=== PATIENT | male | born 1975 | race Caucasian/White ===

== ENCOUNTER 2023-06-06 08:28 | Outpatient (REF) | payer MEDICAID, SELFPAY ==
[2023-06-06 14:12] LABS: MANUAL DIFF FLAG NO
[2023-06-06 14:16] LABS: Basophils Absolute Auto 0.1 X10*3/uL (0.0-0.2); Basophils Percent Auto 0.9 % (0-2); Eosinophils Absolute Auto 0.2 X10*3/uL (0.0-0.4); Eosinophils Percent Auto 1.6 % (0-4); Hematocrit 42.5 % (42.0-52.0); Hemoglobin 13.6 g/dl (14.0-18.0); Imm Gran Abs Auto 0.03 X10*3/uL (0.00-0.03); Imm Gran Pct Auto 0.3 % (0.0-0.4); Lymphocytes Absolute Auto 2.8 X10*3/uL (1.2-4.9); Lymphocytes Percent Auto 28.5 % (20-40); Mean Corpuscular Hemoglobin 32.4 pg (27.0-33.0); Mean Corpuscular Volume 101.2 fL (80.0-98.0); Mean Platelet Volume 12.5 fL (9.4-12.4); Monocytes Absolute Auto 0.7 X10*3/uL (0.1-1.2); Monocytes Percent Auto 7.6 % (2-11); Neutrophils Absolute Auto 5.9 x10*3/uL (2.0-8.3); Neutrophils Percent Auto 61.1 % (45-73); Platelet Count 265 X10*3/uL (160-400); Red Cell Distribution Width 12.9 % (11.0-16.0); White Blood Count 9.6 X10*3/uL (4.8-10.8)
[2023-06-06 14:25] LABS: Estimated Average Glucose 105 mg/dL; Hemoglobin A1c % 5.3 % (<6.0)
[2023-06-06 14:39] LABS: Alanine Aminotransferase 12 U/L (0-40); Albumin Level 4.1 g/dL (3.5-5.0); Alkaline Phosphatase 58 U/L (39-117); Anion Gap 18 (12-20); Aspartate Amino Transferase 13 U/L (5-37); Bilirubin Total 1.1 mg/dL (0.0-1.0); Blood Urea Nitrogen 43 mg/dL (9-16); Calcium 9.6 mg/dL (8.4-10.2); Carbon Dioxide 22 mmol/L (22-29); Chloride 104 mmol/L (96-108); Cholesterol 134 mg/dL (<200); Estimated Glomerular Filt Rate 53; Glucose Fasting 89 mg/dL (60-99); HDL Cholesterol 39 mg/dL (>40); LDL Cholesterol Calculated 54 mg/dL (<100); Potassium 4.6 mmol/L (3.3-5.1); Sodium 139 mmol/L (135-145); Total Protein 8.3 g/dL (6.5-8.0); Triglycerides 208 mg/dL (<150)
[2023-06-06 14:51] LABS: Creatinine Urine 189.73 mg/dL; Microalbum/Creatinine Ratio Ur 12.1 ug/mg cr (<30)
[2023-06-06 14:56] LABS: TSH reflex Free T4 0.98 uIU/mL (0.32-4.0)
[2023-06-07 05:34] LABS: ~HepC Num1 0.15 S/CO (0.00-0.79); ~Hepatitis C Antibody Nonreactive (Nonreactive)
[2023-06-09 15:34] LABS: HIV RNA PCR Qn Copies Not Detected Copies/mL; HIV RNA PCR Qn Log Copies Not Detected Log cps/mL
== END 2023-06-06 08:29 | disposition home or self-care (01) ==
LOC: HO.CHCLDS 08:28
PROVIDERS: Visit Provider Internal Medicine
DX: Z11.4 Encounter for screening for human immunodeficiency virus [HIV] (principal); E11.69 Type 2 diabetes mellitus with other specified complication; E78.5 Hyperlipidemia, unspecified
CPT/HCPCS: 36415; 80053; 80061; 82043; 82570; 83036; 84443; 85025; 86803; 87536; 87900

== ENCOUNTER 2023-06-13 10:16 | Outpatient (REF) | payer MEDICAID, SELFPAY ==
[2023-06-13 15:03] LABS: Iron 72 mcg/dL (45-160); Percent Iron Saturation 25 % (15-50); Total Iron Binding Capacity 285 mcg/dL (228-428); Unsaturated Iron Binding 213 ug/dL
[2023-06-13 15:29] LABS: Vitamin B12 275 pg/mL (200-900)
== END 2023-06-13 10:17 | disposition home or self-care (01) ==
LOC: HO.CHCLDS 10:16
PROVIDERS: Visit Provider Internal Medicine
DX: E11.65 Type 2 diabetes mellitus with hyperglycemia (principal); Z79.4 Long term (current) use of insulin
CPT/HCPCS: 36415; 82607; 82746; 83540

== ENCOUNTER 2024-03-09 10:20 | Outpatient (REF) | payer MEDICAID, SELFPAY ==
[2024-03-09 14:56] LABS: Alanine Aminotransferase 17 U/L (0-40); Alkaline Phosphatase 53 U/L (39-117); Anion Gap 15 (12-20); Aspartate Amino Transferase 21 U/L (5-37); Bilirubin Total 1.9 mg/dL (0.0-1.0); Blood Urea Nitrogen 29 mg/dL (9-16); Calcium 9.6 mg/dL (8.4-10.2); Carbon Dioxide 25 mmol/L (22-29); Chloride 104 mmol/L (96-108); Estimated Glomerular Filt Rate > 60; Glucose Random 83 mg/dL (60-115); Potassium 4.6 mmol/L (3.3-5.1); Sodium 139 mmol/L (135-145); Total Protein 8.2 g/dL (6.5-8.0)
[2024-03-09 14:57] LABS: Creatinine Urine 174.17 mg/dL; Microalbum/Creatinine Ratio Ur 14.3 ug/mg cr (<30)
== END 2024-03-09 10:21 | disposition home or self-care (01) ==
LOC: HO.CHCLDS 10:20
PROVIDERS: Visit Provider Internal Medicine
DX: Z13.89 Encounter for screening for other disorder (principal)
CPT/HCPCS: 36415; 80053; 82043; 82570